=== PATIENT | female | born 1945 | race Asian ===

== ENCOUNTER 2016-03-17 09:26 | Emergency (ER) | payer MEDICARE, MEDICAID ==
--- NOTE | 2016-03-17 12:04 | RAD ---
RIGHT ELBOW 3 VIEWS HISTORY: Status post fall with right elbow injury. COMPARISONS: None. TECHNIQUE: Frontal, lateral, and oblique views of the right elbow. ALIGNMENT: Grossly unremarkable. FRACTURE: Minor lucency on lateral view raising suspicion for nondisplaced radial head fracture. Remote healed fracture of the right humeral diaphysis. DEGENERATIVE CHANGE: Enthesophyte formation at the humeral epicondyles. SOFT TISSUES: Joint effusion is present. RADIOOPAQUE FOREIGN BODY: None. IMPRESSION: 1. Joint effusion together with subtle lucency raising suspicion for nondisplaced radial head fracture. 2. Healed fracture of the right humeral diaphysis. 3. Degenerative change, correlate for flexor tendinopathy.
--- NOTE | 2016-03-17 12:05 | RAD ---
RIGHT LOWER LEG 2 VIEWS HISTORY: Status post fall with leg pain. COMPARISONS: None. TECHNIQUE: Frontal and lateral views of the right lower leg. ALIGNMENT: Grossly unremarkable. FRACTURE: No displaced acute fracture. SOFT TISSUES: Grossly unremarkable. RADIOOPAQUE FOREIGN BODY: None. DEGENERATIVE CHANGE: Small dystrophic calcifications along the tibial spines of the proximal tibia. Prominent calcaneal spur. IMPRESSION: No gross malalignment or displaced acute fracture noted.
== END 2016-03-17 13:30 | disposition home or self-care (01) ==
LOC: ED 09:26
DX: S52.124A Nondisplaced fracture of head of right radius, initial encounter for closed fracture (principal); T14.8 Other injury of unspecified body region; M25.561 Pain in right knee; E11.9 Type 2 diabetes mellitus without complications; Z79.84 Long term (current) use of oral hypoglycemic drugs; I10 Essential (primary) hypertension; I48.91 Unspecified atrial fibrillation; Z79.01 Long term (current) use of anticoagulants; W01.0XXA Fall on same level from slipping, tripping and stumbling without subsequent striking against object, initial encounter; Y92.9 Unspecified place or not applicable

== ENCOUNTER 2016-05-08 02:24 | Inpatient (IN) | payer MEDICARE, MEDICAID ==
[2016-05-08] MEDS ORDERED: ASPIRIN CHEWTAB 81 MG TABLET ONE (02:42)
[2016-05-08 02:56] LABS: ABSOLUTE NEUTROPHIL COUNT 7.4 K/mm3 (1.8-7.7); BASO # 0.1 K/mm3 (0.0-0.2); BASO % 0.6 % (0.2-1.0); EOS # 0.3 (0.0-0.5); EOS % 2.3 % (0.9-2.9); HEMATOCRIT 36.5 % (37.0-47.0); HEMOGLOBIN 11.2 gm/l (12.0-16.0); IMM NEUT% 0.4 % (0-1); LYMPH # 1.8 (1.0-4.8); LYMPH % 16.8 % (15-45); MEAN CELL VOLUME 89.2 fl (81.0-99.0); MEAN CORPUSCULAR HEMOGLOBIN 27.4 pg (27.0-31.0); MEAN CORPUSCULAR HGB CONC 30.7 g/dl (33.0-37.0); MEAN PLATELET VOLUME 10.1 fl (7.4-10.4); MONO # 1.1 (0.0-0.8); MONO % 10.3 % (4-12); NEUT % 69.6 % (43-75); PLATELET COUNT 188 K/mm3 (130-400); RED CELL DISTRIBUTION WIDTH 19.4 % (11.5-14.5)
[2016-05-08 03:06] LABS: INR 3.68; PARTIAL THROMBOPLASTIN TIME 42.1 SECONDS (24.5-33.0); PROTHROMBIN TIME 41.4 SECONDS (9.3-11.4)
[2016-05-08 03:11] LABS: ALB/GLOB RATIO 1.3 (>1.0); ALBUMIN 3.9 gm/dL (3.5-5.7); CALCIUM 8.9 mg/dL (8.6-10.3)
[2016-05-08 03:14] LABS: TROPONIN I 0.03 ng/ml (0.0-0.06)
[2016-05-08] MEDS ORDERED: FUROSEMIDE 40 MG/4 ML VIAL ONE (03:36)
[2016-05-08 06:05] VITALS: BMI 33.9
[2016-05-08] MEDS ORDERED: BISACODYL 5 MG TABLET.EC PO PRN (07:27)
[2016-05-08] MEDS ORDERED: ACETAMINOPHEN 325 MG TABLET PO PRN (07:27)
[2016-05-08] MEDS ORDERED: SODIUM CHLORIDE 0.9% 100 ML IV PRN (07:27)
[2016-05-08] MEDS ORDERED: BLISTEX LIPSTICK 1 EACH TP PRN (07:27)
[2016-05-08] MEDS ORDERED: MAGNESIUM HYDROXIDE 30 ML UDCUP PO PRN (07:27)
[2016-05-08] MEDS ORDERED: MENTHOL/CETYLPYRD 1 EACH LOZENGE PO PRN (07:27)
[2016-05-08] MEDS ORDERED: BISACODYL 10 MG SUP PR PRN (07:27)
[2016-05-08] MEDS ORDERED: INSULIN ASPART (DOSE) 100 UNITS/1 ML SUB-Q PRN (07:33)
--- NOTE | 2016-05-08 07:48 | RAD ---
05/08/2016 7:42 AM CHEST - 2 VIEWS History: Shortness of breath and wheezing for 3 hours Comparison: 08/09/2010 Findings: Two views of the chest are obtained. The lungs demonstrate patchy airspace disease in the predominantly bibasilar distribution. Curly B lines are also present. Small effusion is noted on lateral examination. The cardiomediastinal silhouette mildly enlarged.. The osseous structures are intact.. 2-lead left-sided pacemaker is again noted with leads terminating in expected regions of the right atrium and ventricle. IMPRESSION: Interstitial edema with patchy airspace disease worrisome for airspace edema and effusions compatible with heart failure. Follow-up as clinically warranted.
--- NOTE | 2016-05-08 08:12 | HP ---
Georgina Quijano ADMIT DATE: 05/08/2016 CHIEF COMPLAINT: Shortness of breath and chest pain. HISTORY OF PRESENT ILLNESS: Georgina is a 71-year-old woman with known underlying chronic diastolic heart failure as well as atrial fibrillation. 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 This woke her up around midnight. She has really had no other symptoms. No recent illnesses. No recent fevers, chills, headache, visual symptoms. No other chest pain or heart palpitations. No nausea, vomiting, diarrhea. No extremity weakness, numbness, tingling, or swelling. She presented to the emergency room for evaluation. In the emergency room she was worked up and found to have evidence of a congestive heart failure exacerbation with both chest x-ray findings, elevated BNP, and clinical findings. She was also found to be quite weak. She was treated with IV Lasix and nitroglycerin in the emergency room with marked improvement in her symptoms within the first hour. It was elected to admit her to the hospitalist service for further diuresis and treatment. REVIEW OF SYSTEMS: As noted above otherwise, negative. PAST MEDICAL HISTORY: 1. Chronic atrial fibrillation with a history of rapid ventricular response/sick sinus syndrome. She was status post pacer placement on 08/08/2010. She is chronically anticoagulated with Coumadin. 2. Diastolic heart failure, chronic. Last echocardiogram 12/01 showing an ejection of 57% and evidence of diastolic dysfunction and pulmonary hypertension. 3. No history of coronary artery disease. She had an angiogram 02/27/2008 showing normal coronary arteries throughout. 4. Hypertension. 5. Diabetes mellitus type 2. 6. Hyperlipidemia. 7. Macular degeneration. 8. History of a stroke in the distant past with no residual. 9. Hypothyroidism. PAST SURGICAL HISTORY: 1. Appendectomy. 2. Umbilical hernia repair. 3. Colonoscopy with polypectomy 10/18/2015. ALLERGIES: No known drug allergies. CURRENT MEDICATIONS: 1. Levothyroxine 25 mcg by mouth daily. 2. Coreg 25 mg by mouth twice daily. 3. Amiodarone 200 mg by mouth daily. 4. Lasix 40 mg by mouth daily. 5. Digoxin 0.125 mcg by mouth daily. 6. Isosorbide mononitrate 120 by mouth daily. 7. Lantus 10 units subcutaneously bedtime. 8. Hydralazine 50 mg by mouth twice daily. 9. Mevacor 40 mg by mouth every evening. 10. Lisinopril 40 mg by mouth daily. 11. Metformin 1000 mg by mouth twice daily. 12. Potassium chloride 20 mEq by mouth daily. 13. Nitroglycerin 0.4 mg sublingual as needed. 14. Coumadin 5 mg by mouth daily adjusted as needed. 15. Omeprazole 20 mg by mouth daily. SOCIAL HISTORY: She is independent in her activities of daily living. She lives at home with her . Multiple family members in the area. No tobacco use. She has a history of alcohol use though none in the last 6 years. FAMILY HISTORY: Noncontributory. OBJECTIVE: VITAL SIGNS: Temperature 98.1, pulse 79, blood pressure 178/96, respirations 16, O2 sat 91% on room air. GENERAL: This is a obese elderly [place] Citizen female. She is alert, calm, and in no acute distress. She answers questions. She is speaking in full sentences. HEENT: Benign. Oropharynx moist. Poor dentition noted. NECK: Supple. There is no JVD. LUNGS: She does have some bilateral basilar rales, but otherwise clear to auscultation. HEART: Regular rate and rhythm. ABDOMEN: Soft. EXTREMITIES: No edema. She does have some chronic stasis changes noted in the bilateral ankles. LABORATORIES: CBC with a white count of 10.7, hemoglobin 11.2, hematocrit 36.5, platelets of 188. Chemistry panel, sodium 137, potassium 4.9, chloride 101, carbon dioxide 27, BUN 12, creatinine 0.8, glucose of 112. AST 55, ALT 51, alk phos 62. CK-MB of 1.0, troponin 0.03, BNP is elevated at 746. INR is slightly supratherapeutic at 3.68. DIAGNOSTICS: Chest x-ray shows bilateral pulmonary edema with cardiomegaly. I am awaiting official radiology read. EKG shows a paced rhythm. ASSESSMENT: 1. Congestive heart failure exacerbation presumed diastolic given her history. She has already had marked improvement after a single dose of Lasix and nitroglycerin in the emergency room. We will plan on continued diuresis and monitoring. She has not had an echo in almost 2 years, so I will go ahead and repeat this while here. 2. Chronic atrial fibrillation with a history of sick sinus syndrome. She is status post pacer, appears to be functioning normally. We will continue with her regular medications. 3. Chronic anticoagulation with Coumadin. Will manage as per pharmacy. 4. Hypertension, stable. Continue with her regular medications. 5. Diabetes mellitus type 2. We will hold her oral medications and place her on basal bolus protocol. 6. Hyperlipidemia. We will continue with her statin. 7. Hypothyroidism. We will continue with her usual levothyroxine. 8. Deep venous thrombosis prophylaxis. Patient is already anticoagulated with Coumadin. Further care is dictated by clinic course. JOB: [id number] CC: Dr. Hilary Barreto
[2016-05-08] MEDS: AMIODARONE HCL 200 MG TABLET PO SCH (09:23)
[2016-05-08] MEDS: POTASSIUM CHLORIDE 20 MEQ TAB.PRT.SR PO SCH (09:23)
[2016-05-08] MEDS: ISOSORBIDE MONONITRATE 60 MG TAB.SR PO SCH (09:23)
[2016-05-08] MEDS: POLYETHYLENE GLYCOL 3350 17 G POWD.SUSP PO SCH (09:23)
[2016-05-08] MEDS: DOCUSATE SODIUM 100 MG CAPSULE PO SCH ×2 (09:23→20:13)
[2016-05-08] MEDS: LEVOTHYROXINE SODIUM 25 MCG TABLET PO SCH (09:23)
[2016-05-08] MEDS: LISINOPRIL 20 MG TABLET PO SCH (09:24)
[2016-05-08] MEDS: FUROSEMIDE 40 MG/4 ML VIAL IV SCH ×2 (09:24→16:15)
[2016-05-08] MEDS: CARVEDILOL 25 MG TABLET PO SCH ×2 (09:24→20:13)
[2016-05-08] MEDS: PANTOPRAZOLE 40 MG TABLET DR PO SCH (09:24)
[2016-05-08 10:16] LABS: SPECIFIC GRAVITY 1.015 (1.001-1.030); URINE BILIRUBIN NEGATIVE (NEGATIVE); URINE BLOOD NEGATIVE (NEGATIVE); URINE GLUCOSE (UA) NEGATIVE (NEGATIVE); URINE LEUKOCYTE ESTERASE NEGATIVE (NEGATIVE); URINE NITRITE NEGATIVE (NEGATIVE); URINE PROTEIN 1+ (NEGATIVE); URINE UROBILINOGEN NORMAL (0-1 mg/dl)
[2016-05-08 10:17] LABS: URINE APPEARANCE CLEAR; URINE COLOR YELLOW
[2016-05-08 10:45] LABS: URINE BACTERIA 0; URINE EPITHELIAL CELLS 0-1 /hpf; URINE RBC 0-1 /hpf; URINE WBC NEG /hpf
[2016-05-08] MEDS: HYDRALAZINE HCL 25 MG TABLET PO SCH ×2 (11:22→20:13)
[2016-05-08] MEDS: DIGOXIN 0.125 MG TABLET PO SCH (12:15)
[2016-05-08] MEDS: NITROGLYCERIN 0.4 MG/TAB.SUBL BOT SL PRN ×3 (14:44→15:19)
[2016-05-08] MEDS ORDERED: WARFARIN SODIUM 5 MG TABLET PO SCH (16:00)
[2016-05-08] MEDS ORDERED: WARFARIN PER PHARMACY 1 EACH DOSE PO SCH (16:00)
--- NOTE | 2016-05-08 16:29 | PDOC36 ---
Provider Note Subject: Patient with complaints of chest pain, this is recurrent for her. She says she cannot breath and has a heaviness. Similar to prior occurrences. NTG with little relief. IN review of medical interpreter's records, she has piercing chest pain on regular basis. Symptoms improved with supplemental oxygen. EKG similar to one obtained in ED with diffuse ST segment depression in all leads and atrial paced. Similar to EKG from [facility] with diffuse ST segment depression and atrial pacing from 11/22/2014. Trop remains WNL Echocardiogram today shows EF 65%, LVH, grade 2 diastolic dysfunction, aortic valve sclerosis.
[2016-05-08] MEDS ORDERED: LOVASTATIN 20 MG TABLET PO SCH (20:00)
[2016-05-08] MEDS ORDERED: INSULIN GLARGINE (DOSE) 100 UNITS/ML UNIT SUB-Q SCH (21:00)
[2016-05-09 05:54] LABS: HEMATOCRIT 32.5 % (37.0-47.0); HEMOGLOBIN 10.3 gm/l (12.0-16.0); MEAN CELL VOLUME 87.4 fl (81.0-99.0); MEAN CORPUSCULAR HEMOGLOBIN 27.7 pg (27.0-31.0); MEAN CORPUSCULAR HGB CONC 31.7 g/dl (33.0-37.0); RED CELL DISTRIBUTION WIDTH 18.8 % (11.5-14.5)
[2016-05-09 06:12] LABS: INR 3.09; PROTHROMBIN TIME 34.4 SECONDS (9.3-11.4)
[2016-05-09 06:14] LABS: ALB/GLOB RATIO 1.1 (>1.0); ALBUMIN 3.5 gm/dL (3.5-5.7); CALCIUM 8.7 mg/dL (8.6-10.3)
[2016-05-09] MEDS: DOCUSATE SODIUM 100 MG CAPSULE PO SCH (08:21)
[2016-05-09] MEDS: HYDRALAZINE HCL 25 MG TABLET PO SCH (08:21)
[2016-05-09] MEDS: ISOSORBIDE MONONITRATE 60 MG TAB.SR PO SCH (08:22)
[2016-05-09] MEDS: AMIODARONE HCL 200 MG TABLET PO SCH (08:22)
[2016-05-09] MEDS: CARVEDILOL 25 MG TABLET PO SCH (08:22)
[2016-05-09] MEDS: POLYETHYLENE GLYCOL 3350 17 G POWD.SUSP PO SCH (08:23)
[2016-05-09] MEDS: FUROSEMIDE 40 MG/4 ML VIAL IV SCH (08:23)
[2016-05-09] MEDS: LEVOTHYROXINE SODIUM 25 MCG TABLET PO SCH (08:23)
[2016-05-09] MEDS: POTASSIUM CHLORIDE 20 MEQ TAB.PRT.SR PO SCH (08:23)
[2016-05-09] MEDS: LISINOPRIL 20 MG TABLET PO SCH (08:24)
[2016-05-09] MEDS: PANTOPRAZOLE 40 MG TABLET DR PO SCH (08:24)
[2016-05-09 11:59] VITALS: BP 124/60
[2016-05-09] MEDS: DIGOXIN 0.125 MG TABLET PO SCH (11:59)
--- NOTE | 2016-05-09 12:45 | PDOC43 ---
- Subjective Chief Complaint: Chest pain Patient reports feeling ok. Had a BM, so feeling better. Daughter reports stress may be a significant contributor to her symptoms. Hx of NTG in remote past, not monique helpful. Hasn't tried other meds? Sx not related to activity or rest. Somewhat increased by lying supine. - Objective Vital Signs Temperature 98.1 F 05/09/16 11:57 Pulse Rate 82 05/09/16 11:57 Respiratory Rate 17 05/09/16 11:57 Blood Pressure 124/60 05/09/16 11:57 O2 Saturation by Pulse Oximetry 93 05/09/16 11:57 Oxygen Delivery Method Room Air Oxygen Flow Rate 0 Vital Signs Last 12 Hours Temp Pulse Resp BP Pulse Ox 05/09/16 11:57 98.1 F 82 17 124/60 93 05/09/16 10:16 70 92 05/09/16 10:00 98.4 F 86 17 150/71 93 05/09/16 08:35 17 05/09/16 08:30 90 05/09/16 08:14 82 169/94 05/09/16 07:13 98.3 F 77 17 162/94 98 05/09/16 04:00 98.7 F 75 20 137/65 99 05/09/16 01:00 20 Intake and Output 05/07/16 05/08/16 05/09/16 23:59 23:59 23:59 Intake Total 1180 400 Output Total 2200 1850 Balance -1020 -1450 General: Alert, Cooperative, No Acute Distress HEENT: Atraumatic Lungs: Clear to Auscultation Bilaterally, Normal Air Movement Cardiovascular: Regular Rate and Rhythm, No Murmur Abdomen: Soft Extremities: No Edema, No Tenderness Neurological: Normal Speech Psych/Mental Status: Other (daughter and grandson here.) Laboratory 05/09/16 05:30 05/09/16 05:30 05/09/16 05/08/16 05/08/16 05:30 21:50 16:50 RBC 3.72 L MCHC 31.7 L RDW 18.8 H PT 34.4 H POC Capillary Glucose 147 H 214 H AST 68 H ALT 70 H Laboratory Tests 05/08/16 05/09/16 15:44 05:30 Troponin I 0.04 0.05 Current Medications: Current meds reviewed in EMR. Active Medications Acetaminophen (Tylenol) 650 mg PO Q6H PRN PRN Reason: Pain or Temperature > 100.5 F Amiodarone HCl (Cordarone) 200 mg PO DAILY [facility] Last Admin: 05/09/16 08:22 Dose: 200 mg Benzocaine/Menthol (Cepacol) 1 each PO PRN PRN PRN Reason: Sore Throat Bisacodyl (Dulcolax) 10 mg [place] DAILY PRN PRN Reason: Constipation Bisacodyl (Dulcolax) 5 mg PO DAILY PRN PRN Reason: Constipation Last Admin: 05/09/16 06:59 Dose: 5 mg Carvedilol (Coreg) 25 mg PO BID [facility] Last Admin: 05/09/16 08:22 Dose: 25 mg Digoxin (Lanoxin) 0.125 mg PO DAILY@1200 [facility] Last Admin: 05/09/16 11:59 Dose: 0.125 mg Docusate Sodium (Colace) 100 mg PO BID [facility] Last Admin: 05/09/16 08:21 Dose: 100 mg Furosemide (Lasix) 40 mg IV [id number] [facility] Last Admin: 05/09/16 08:23 Dose: 40 mg Hydralazine HCl (Apresoline) 50 mg PO BID [facility] Last Admin: 05/09/16 08:21 Dose: 50 mg Sodium Chloride (Sodium Chloride 0.9%) 100 mls @ 25 mls/hr IV PRN PRN PRN Reason: Flush Insulin Aspart (Novolog (Dose)) 0 units SUB-Q WM/BEDTIME PRN; Protocol PRN Reason: Blood Sugar > Insulin Glargine (Lantus (Dose)) 10 units SUB-Q BEDTIME [facility] Last Admin: 05/08/16 20:12 Dose: 10 units Isosorbide Mononitrate (Imdur) 120 mg PO DAILY [facility] Last Admin: 05/09/16 08:22 Dose: 120 mg Levothyroxine Sodium (Levothroid) 25 mcg PO DAILY [facility] Last Admin: 05/09/16 08:23 Dose: 25 mcg Lisinopril (Prinivil) 40 mg PO DAILY [facility] Last Admin: 05/09/16 08:24 Dose: 40 mg Lovastatin (Mevacor) 40 mg PO QPM [facility] Last Admin: 05/08/16 20:13 Dose: 40 mg Magnesium Hydroxide (Milk Of Magnesia) 30 ml PO DAILY PRN PRN Reason: Constipation Last Admin: 05/08/16 14:48 Dose: 30 ml Miscellaneous (Coumadin Per Pharmacy) 1 each PO PERPHARMACY [facility] Nitroglycerin (Nitrostat) 0.4 mg SL Q5M X 3 DOSES PRN PRN Reason: Chest Pain Last Admin: 05/08/16 15:19 Dose: 0.4 mg Pantoprazole Sodium (Protonix) 40 mg PO DAILY [facility] Last Admin: 05/09/16 08:24 Dose: 40 mg Petrolatum/Paraffin/Mineral Oil (Blistex) 1 each TP PRN PRN PRN Reason: Dry and/or chapped lips Polyethylene Glycol/Electrolytes (Miralax) 17 g PO DAILY [facility] Last Admin: 05/09/16 08:23 Dose: 17 g Potassium Chloride (K-Dur) 20 meq PO DAILY [facility] Last Admin: 05/09/16 08:23 Dose: 20 meq Sodium Chloride (Normal Saline 10ml Flush) 10 - 50 ml IV PRN PRN PRN Reason: IV Flush Last Admin: 05/09/16 08:24 Dose: 10 ml Sodium Chloride (Normal Saline 10ml Flush) 10 ml IV Q8HR [facility] Last Admin: 05/09/16 08:24 Dose: 10 ml Warfarin Sodium (Coumadin) 2.5 mg PO X1 ONE Stop: 05/09/16 16:01 - Problems: Assessment/Plan (1) Chest pain with normal coronary angiography Status: AcuteAssessment/Plan: Will try PPI for GERD and benzodiazepine prn chest pain. Follow up with Dr Richard. (2) Diabetes mellitus, type II Status: AcuteAssessment/Plan: bg 85-214. Continue meds (3) LVH (left ventricular hypertrophy) Status: AcuteAssessment/Plan: Seen on echo. Continue meds, including lisinopril. (4) Diastolic dysfunction without heart failure Status: ChronicAssessment/Plan: Seen on echo. Continue meds. Follow up with PCP. (5) Presence of cardiac pacemaker Status: ChronicAssessment/Plan: Paced rhythm on EKG, 79 bpm VTE Prophylaxis: Anticipate low risk, as she is on coumadin for atrial fib Disposition: anticipate DC to home today with family.
[2016-05-09] MEDS ORDERED: WARFARIN SODIUM 2.5 MG TABLET PO ONE (16:00)
--- NOTE | 2016-05-09 23:23 | DS ---
MARKIE BRASWELL [id number] DATE OF ADMISSION: 05/08/2016 DATE OF DISCHARGE: 05/09/2016 DISCHARGE DIAGNOSES: 1. Chest pain, felt to be non-cardiac. 2. Congestive heart failure, primarily diastolic. 3. Chronic atrial fibrillation, status post pacemaker, on Coumadin. 4. Hypertension. 5. Diabetes mellitus Type-2. 6. Dyslipidemia. 7. Hypothyroidism. REASON FOR ADMISSION: The patient is a 71-year-old female with a history of known underlying chronic diastolic heart failure, as well as atrial fibrillation. She presented to the ER regarding a six hour history of shortness of breath and chest tightness which woke her up at about midnight. She was noted to have some chest x-ray findings suggestive of CHF, elevated BNP and some weakness, and was treated with IV Lasix and nitroglycerin in the emergency department, with marked improvement in symptoms, and referred to the Hospitalist Service for further diuresis and treatment. The patient had been reported to have had evaluation by cardiology before, without significant coronary artery disease. The patient underwent an echocardiogram performed on 05/08/2016, showing moderate LV hypertrophy, left ventricular systolic function normal at 60-65% and Grade-2 diastolic dysfunction with elevated filling pressures. Right ventricular size and systolic function appears to be normal. Left atrium moderately dilated. Right atrium mildly dilated. Right ventricular systolic pressure 40-45 mmHg. HOSPITAL COURSE: The patient's troponins remained normal through the night. Her BNP was 746 on admission. She had normal electrolytes, with a sodium of 137, potassium 4.9, BUN of 12, creatinine 0.8, glucose 112, AST of 55, ALT of 51 and alkaline phosphatase of 62. Her white blood cell count is 10.7 and hemoglobin 11.2. INR was 3.68. Urinalysis was unremarkable. Digoxin 1.1. She had a chest x-ray showing interstitial edema with patchy air space disease, worrisome for air space edema and effusions, compatible with heart failure. Follow-up is clinically warranted. On the morning of 05/09/2016 she was feeling much better and eager for discharge. Her discomfort was discussed as well and she has not had other non-cardiac causes addressed, so a prescription was given to her for using Protonix, as she had been treated with this while here, and a dose of lorazepam to use as needed, as her daughter had indicated she was under a lot of stresses. DISCHARGE MEDICATIONS: She is anticipated to be discharged to home on her regular medicines, plus these two. These will be: 1. Amiodarone 200 mg daily. 2. Carvedilol 25 mg by mouth twice a day. 3. Digoxin 125 mcg daily. 4. Lasix 40 mg by mouth daily. 5. Hydralazine 50 mg by mouth twice a day. 6. Lantus 10 units at bedtime. 7. Isosorbide mononitrate extended-release 120 mg daily. 8. Levothyroxine 25 mcg daily. 9. Lisinopril 40 mg daily. 10. Lorazepam 0.5 mg by mouth every six hours PRN. 11. Lovastatin 40 mg by mouth every P.M. 12. Metformin 1,000 mg by mouth twice a day. 13. Nitroglycerin 0.4 mg sublingually as needed. 14. Pantoprazole 40 mg by mouth daily, or substitute omeprazole 20 mg by mouth daily. 15. Potassium chloride 20 mEq by mouth daily. 16. Warfarin 2.5 mg by mouth on Friday, Friday, and Friday, and 5 mg on the other days. DISCHARGE FOLLOW-UP: 1. Follow-up is requested with Dr. Richard in 7-10 days. She is to review with Dr. Richard if the proton pump inhibitor has been of any help for her symptoms and if the lorazepam seems to be of any benefit as well. If the lorazepam seems to be quite helpful, would consider for other treatment, possibly of stressors, as related by daughter. If the proton pump inhibitor is helpful, would consider longer term use if reflux could be playing a role in her symptoms. 2. She may also wish to review with Dr. Barreto if further revision of her cardiac medicines is desired. VITAL SIGNS AT TIME OF DISCHARGE: Temperature 98.1. Pulse 82. Blood pressure 124/60. Respirations 17. Saturation 93% on room air. Blood sugar was 207.. cc: Dr. Amaury Richard
== END 2016-05-09 13:15 | disposition home or self-care (01) | DRG 293 ==
LOC: ED 02:24 → MS 05:03
PROVIDERS: ADMIT Family Medicine; ATTEND Family Medicine
DX: I11.0 Hypertensive heart disease with heart failure (principal); I50.32 Chronic diastolic (congestive) heart failure; I48.2 Chronic atrial fibrillation; Z79.01 Long term (current) use of anticoagulants; I27.2 Other secondary pulmonary hypertension; E11.9 Type 2 diabetes mellitus without complications; E78.5 Hyperlipidemia, unspecified; H35.30 Unspecified macular degeneration; Z86.73 Personal history of transient ischemic attack (TIA), and cerebral infarction without residual deficits; E03.9 Hypothyroidism, unspecified; E66.9 Obesity, unspecified; Z79.84 Long term (current) use of oral hypoglycemic drugs; Z79.4 Long term (current) use of insulin